=== PATIENT | female | born 1995 | race American Indian/Alaskan Native ===

== ENCOUNTER 2021-10-18 12:45 | Inpatient (IN) | payer OTHER ==
[2021-10-18] MEDS ORDERED: TERBUTALINE 1 MG/1 ML INJ SUB-Q PRN (13:28)
[2021-10-18] MEDS ORDERED: METHYLERGONOVINE MALEATE 0.2 MG/ML VIAL IM PRN (13:28)
[2021-10-18] MEDS ORDERED: fentaNYL 100 MCG/2 ML INJ IV PRN (13:28)
[2021-10-18] MEDS ORDERED: ePHEDrine SULFATE 50 MG/1 ML INJ IV PRN ×2 (13:28→15:32)
[2021-10-18] MEDS ORDERED: BUTORPHANOL 2 MG/1 ML INJ IV PRN (13:28)
[2021-10-18] MEDS ORDERED: LIDOCAINE (2%) 20 MG/1 ML VIAL 20 ML MDV INFILTRATI ONE (13:28)
[2021-10-18] MEDS ORDERED: OXYTOCIN 10 UNIT/1 ML INJ IM PRN (13:28)
[2021-10-18] MEDS ORDERED: LOPERAMIDE 2 MG CAP PO PRN (13:28)
[2021-10-18] MEDS ORDERED: miSOPROStol 200 MCG TAB PR PRN (13:28)
[2021-10-18] MEDS ORDERED: MINERAL OIL 30 ML ORAL LIQD PO PRN (13:28)
[2021-10-18] MEDS ORDERED: AMPICILLIN/NS 2 GM/100 ML 2 GM/100 ML BAG IV ONE (13:28)
[2021-10-18] MEDS ORDERED: ACETAMINOPHEN 325 MG TAB PO PRN (13:28)
[2021-10-18] MEDS ORDERED: CARBOPROST TROMETHAMINE 250 MCG/1 ML INJ IM PRN (13:28)
[2021-10-18] MEDS ORDERED: LACTATED RINGERS 1,000 ML IV SCH (13:30)
--- NOTE | 2021-10-18 13:33 | History and Physical Report ---
History of Present Illness Date of examination: 10/18/21 Chief complaint: I'm having contractions. History of present illness: 26 yo @ 41w 0d presents via self, accompanied by partner, Doroteo, with complaint of painful contractions. Endorses copious amount of blood tinged discharge beginning around 1100 yesterday, denies gush of fluid. Endorses movement but states it has been decreased since contractions started last night around 2300. States contractions had regular pattern beginning around 0900 today. Denies heavy vaginal bleeding/ clots, LOF, chest pain, SOB, headaches, vision changes and NVD. NPO since 2029 yesterday. @1330 SVE: 4-5/90/-2 with meconium stained fluid per mixing supervisor. Upon transfer to labor room, FHT Cat 2, notable for variable deceleration. Pt repositioned to L lateral, then R lateral--> FHT Cat 1. VSS. Desires epidural, IVF bolus being administered. EDC Confirmation: 10/11/2021 Past History: : 2 Term Births: 0 Premature Births: 0 Living Children: 0 Para: 0 Mult. Births: 0 Prev : 0 Aborta: 1 Elect. Ab: 1 Spont. Ab: 0 Ectopics: 0 # 1 Delivery type: EAB Past Medical History: Reviewed and updated today: Negative Past Medical History Past Surgical History: Reviewed and updated today: Negative Past Surgical History Family History Summary: First Degree Blood Relative - Has No Known Family History - Entered On: 02/16/2021 Social History: Patient is single Smoking History: Patient has never smoked. Risk Factors: Smoked Tobacco Use: Never smoker Counseled to Quit/Cut Down: yes HIV High Risk Behavior: no Seatbelt Use: 100 % No Dietary Counseling Reason: pn yes Alcohol Use: no Drug Use: no Past Medical History Surgery (Non-cut off worker): Negative Past Surgical History Abnormal PAP: negative VERITO Exposure: negative Infertility: negative Uterine Anomaly: negative Uterine Surgery (not C/S): negative Other Gynecologic Problems: negative Infection History: HIV Risk Eval: no Genetic History: Congenital Heart Defect: Mom: no Dad: no Sebastián Disease: Mom: no Dad: no Thalassemia Mom: no Dad: no Neural Tube Defect Mom: no Dad: no Down's Syndrome Mom: no Dad: no Loki-Sachs Mom: no Dad: no Sickle Cell Disease/Trait Mom: no Dad: no Hemophilia Mom: no Dad: no Muscular Dystrophy Mom: no Dad: no Cystic Fibrosis Mom: no Dad: no Farzaneh Chorea Mom: no Dad: no Mental Retardation Mom: no Dad: no Fragile X Mom: no Dad: no Other Genetic/Chromosomal Disorder Mom: no Dad: no Child w/other defect Mom: no Dad: no Environmental Exposures: Xray Exposure: no Medication, drug, or alcohol use since LMP: no Chemical/Other Exposure: no Exposure to Cat Liter: no Hx of Parvovirus (Fifth Disease): no Occupational Exposure to Children: none Current Allergies (reviewed today):No known allergies Past History Past Medical History: no pertinent history Past Surgical History: no surgical history Family/Genetic History: none Social history: single - Obstetrical History Expected Date of Delivery: 10/11/21 Actual Gestation: 41 Week(s) 0 Day(s) : 2 Para: 0 Hx # Term Pregnancies: 0 Number of Pregnancies: 0 Spontaneous Abortions: 0 Induced : 1 Medications and Allergies Allergies Allergy/AdvReac Type Severity Reaction Status Date / Time No Known Allergies Allergy Unverified 10/18/21 13:50 Active Meds: Active Medications Acetaminophen (Acetaminophen 325 Mg Tab) 650 mg PO Q4H PRN PRN Reason: Pain, Mild (1-3) Butorphanol Tartrate (Butorphanol 2 Mg/1 Ml Inj) 2 mg IV Q2H PRN PRN Reason: Pain, Moderate(4-6) LABOR PAIN Carboprost Tromethamine (Carboprost Tromethamine 250 Mcg/1 Ml Inj) 250 mcg IM ONCE PRN PRN Reason: Uterine Bleeding Ephedrine Sulfate (Ephedrine Sulfate 50 Mg/1 Ml Inj) 10 mg IV Q2M PRN PRN Reason: Hypotension Fentanyl (Fentanyl 100 Mcg/2 Ml Inj) 100 mcg IV Q2H PRN PRN Reason: Pain,Severe (7-10) LABOR PAIN Oxytocin/Sodium Chloride (Pitocin/Ns 30 Unit/500ml) 30 units in 500 mls @ 2 mls/hr IV TITR YULIYA; Protocol Lactated Ringer's (Lactated Ringers) 1,000 mls @ 125 mls/hr IV DIRECT YULIYA Oxytocin/Sodium Chloride (Pitocin/Ns 30 Unit/500ml) 30 units in 500 mls @ 40 mls/hr IV TITR YULIYA; Protocol Ampicillin Sodium (Ampicillin/Ns 2 Gm/100 Ml) 2 gm in 100 mls @ 100 mls/hr IV ONCE ONE; Protocol Stop: 10/18/21 14:27 Ampicillin Sodium (Ampicillin/Ns 1 Gm/50 Ml) 1 gm in 50 mls @ 100 mls/hr IV Q4H YULIYA; Protocol Lidocaine (Lidocaine (2%) 20 Mg/1 Ml Vial 20 Ml Mdv) 20 ml INFILTRATI ONCE ONE Stop: 10/18/21 13:29 Loperamide HCl (Loperamide 2 Mg Cap) 2 mg PO ONCE PRN PRN Reason: give with Hemabate Methylergonovine Maleate (Methylergonovine Maleate 0.2 Mg/Ml Vial) 0.2 mg IM ONCE PRN PRN Reason: Uterine Bleeding Mineral Oil (Mineral Oil 30 Ml Oral Liqd) 30 ml PO QHS PRN PRN Reason: Constipation Misoprostol (Misoprostol 200 Mcg Tab) 800 mcg IA ONCE PRN PRN Reason: Uterine Bleeding Oxytocin (Oxytocin 10 Unit/1 Ml Inj) 10 unit IM ONCE PRN PRN Reason: Uterine Bleeding Terbutaline Sulfate (Terbutaline 1 Mg/1 Ml Inj) 0.25 mg SUB-Q ONCE PRN PRN Reason: Hyperstimulation/Hypertonicity Review of Systems Cardiovascular: no chest pain, no shortness of breath, no dyspnea on exertion, no high blood pressure, no leg edema Respiratory: no shortness of breath Breasts: deferred Gastrointestinal: abdominal pain (contractrions) Genitourinary: leakage of fluid (meconium stained fluid noted on peripad) Rectal Exam: deferred - Physical Exam Breasts: Positive: deferred Cardiovascular: Regular rate, Normal S1, Normal S2 Lungs: Positive: Clear to auscultation, Normal air movement Abdomen: Positive: normal appearance (gravid, S=D; +FHTs) Genitourinary (Female): Positive: normal external genitalia, normal perenium Vulva: both: normal Vagina: Positive: normal moisture Uterus: Positive: other (gravid; S=D; +FHTs) Extremities: Positive: normal - Obstetrical FHR: category 2 (repositioned from supine to L lateral, then R lateral--> Cat 1) Uterine Contraction Monitor Mode: External Cervical Dilatation: 4 (per mixing supervisor @1330) Cervical Effacement Percentage: 90 station: -2 Uterine Contraction Pattern: Regular Uterine Tone Measurement Phase: Resting Uterine Contraction Intensity: Moderate Results Result Diagrams: 10/18/21 14:14 All other labs normal. Assessment and Plan A: 26yo @ 41 weeks 0 days Meconium stained fluid noted upon arrival to unit, copious amounts of blood tinged discharge since 1100 on 10/17/21 per pt SVE: /-2 upon admission GBS+ Cat 1 FHT VSS Obesity (BMI 39.3) P: Admit for delivery cEFM Monitor VS Ampicillin now for GBS prophylaxis Monitor for signs and symptoms of infection Desires epidural, administering IVF bolus now - Patient Problems (1) 41 weeks gestation of Current Visit: Yes Status: Acute (2) Thin meconium stained amniotic fluid Current Visit: Yes Status: Acute (3) Obesity (BMI 35.0-39.9 without comorbidity) Current Visit: Yes Status: Acute (4) Group B streptococcal infection during Current Visit: Yes Status: Acute
[2021-10-18] MEDS ORDERED: OXYTOCIN DRIP 30 UNITS/500 ML BAG IV SCH ×2 (14:00)
[2021-10-18 14:50] LABS: Hematocrit 34.6 % (30.3-42.9); Hemoglobin 11.5 gm/dl (10.1-14.3); Mean Corpuscular HGB Conc 33 % (30-34); Mean Corpuscular Volume 91 fl (79-97); Platelet Count 227 K/mm3 (140-440); Red Cell Distribution Width 13.8 % (13.2-15.2)
[2021-10-18] MEDS ORDERED: LACTATED RINGERS 250 ML IV SOLN IV ONE (15:32)
[2021-10-18] MEDS ORDERED: NALOXONE 2 MG/2 ML INJ IV PRN (15:32)
[2021-10-18] MEDS ORDERED: ONDANSETRON 4 MG/2 ML INJ IV PRN (15:32)
[2021-10-18] MEDS ORDERED: NalbUPHINE 10 MG/1 ML INJ IV PRN (15:32)
[2021-10-18] MEDS ORDERED: diphenhydrAMINE 50 MG/ML VIAL IV PRN (15:32)
--- NOTE | 2021-10-18 16:08 | Anesthesia Consultation ---
Anesthesia Consult and Med Hx Date of service: 10/18/21 - Airway Anesthetic Teeth Evaluation: Good ROM Head & Neck: Adequate Mental/Hyoid Distance: Adequate Mallampati Class: Class III Intubation Access Assessment: Probably Good - Pulmonary Exam CTA: Yes - Cardiac Exam Cardiac Exam: RRR - Pre-Operative Health Status ASA Pre-Surgery Classification: ASA2 Proposed Anesthetic Plan: Epidural - Pulmonary Hx Smoking: No Hx Asthma: No COPD: No Hx Pneumonia: No Hx Sleep Apnea: No - Cardiovascular System Hx Hypertension: No Hx Heart Attack/AMI: No Hx Angina: No - Central Nervous System Hx Seizures: No Hx Psychiatric Problems: No - Gastrointestinal Hx Gastroesophageal Reflux Disease: No - Endocrine Hx Renal Disease: No Hx End Stage Renal Disease: No Hx Liver Disease: No Hx Insulin Dependent Diabetes: No Hx Non-Insulin Dependent Diabetes: No Hx Hypothyroidism: No Hx Hyperthyroidism: No - Hematic Hx Anemia: No Hx Sickle Cell Disease: No
--- NOTE | 2021-10-18 16:09 | Progress Note ---
Labor Epidural - Labor Epidural Start Time: 15:45 Stop Time: 16:00 Performed by:: ELISHA BENNETT (Caro Mcgovern) Procedure: Patient is requesting epidural for labor and pain. H&P, labs were reviewed. Patient IDed, all questions and concerns were answered, and consent was signed. Timeout was performed at bedside. Patient in sitting position. Sterile prep and drape was performed. 3ml of 1% lidocaine skin wheal at L[3]- L [4]. 17- gauge Tuohy epidural needle was advanced to loss of resistance with air technique 8cm. Negative CSF negative blood. Epidural catheter advanced to [14] centimeters. [negative] Aspiration [negative] test dose. Sterile dressing applied. Patient tolerated procedure.
[2021-10-18] MEDS: fentaNYL-BUPIV 2 MCG/ML-0.125% 200 MCG/100 ML BAG EPIDURAL SCH (16:21)
--- NOTE | 2021-10-18 17:58 | Progress Note ---
Assessment and Plan A: 26yo @41w0d admitted for contractions & SROM with leakage of meconium stained fluid @1300 on 10/18 Cat 2 tracing, regular contractions q3-4 min Forebag ruptured - moderate amount of meconium stained fluid ISE placed Cervical change - SVE now: /-1 Hypotension (98/52) GBS+ P: cEFM IVF bolus given Repositioned to Captain Nugent on right side Administer second dose of ampicillin for GBS prophylaxis now Frequent position changes NPO except ice chips Expectant management at this time Anticipate - Patient Problems (1) 41 weeks gestation of Current Visit: Yes Status: Acute (2) Thin meconium stained amniotic fluid Current Visit: Yes Status: Acute (3) Obesity (BMI 35.0-39.9 without comorbidity) Current Visit: Yes Status: Acute (4) Group B streptococcal infection during Current Visit: Yes Status: Acute Subjective - Subjective Date of service: 10/18/21 (1740) Principal diagnosis: 41 wks active labor SROM mec Interval history: 26 yo @ 41w 0d presents via self, accompanied by partner, Doroteo, with complaint of painful contractions. Endorses copious amount of blood tinged discharge beginning around 1100 yesterday, denies gush of fluid. Endorses movement but states it has been decreased since contractions started last night around 2300. States contractions had regular pattern beginning around 0900 today. Denies heavy vaginal bleeding/ clots, LOF, chest pain, SOB, headaches, vision changes and NVD. NPO since 2029 yesterday. @1330 SVE: 4-/-2 with meconium stained fluid per boilermaker industrial boilers. Upon transfer to labor room, T Cat 2, notable for variable deceleration. Pt repositioned to L lateral, then R lateral--> FHT Cat 1. VSS. Desires epidural, IVF bolus being administered. EDC Confirmation: 10/11/2021 Past History: : 2 Term Births: 0 Premature Births: 0 Living Children: 0 Para: 0 Mult. Births: 0 Prev : 0 Aborta: 1 Elect. Ab: 1 Spont. Ab: 0 Ectopics: 0 # 1 Delivery type: EAB Past Medical History: Reviewed and updated today: Negative Past Medical History Past Surgical History: Reviewed and updated today: Negative Past Surgical History Family History Summary: First Degree Blood Relative - Has No Known Family History - Entered On: 02/16/2021 Social History: Patient is single Smoking History: Patient has never smoked. Risk Factors: Smoked Tobacco Use: Never smoker Counseled to Quit/Cut Down: yes HIV High Risk Behavior: no Seatbelt Use: 100 % No Dietary Counseling Reason: pn yes Alcohol Use: no Drug Use: no Past Medical History Surgery (Non-manager zone): Negative Past Surgical History Abnormal PAP: negative VERITO Exposure: negative Infertility: negative Uterine Anomaly: negative Uterine Surgery (not C/S): negative Other Gynecologic Problems: negative Infection History: HIV Risk Eval: no Genetic History: Congenital Heart Defect: Mom: no Dad: no Sebastián Disease: Mom: no Dad: no Thalassemia Mom: no Dad: no Neural Tube Defect Mom: no Dad: no Down's Syndrome Mom: no Dad: no Loki-Sachs Mom: no Dad: no Sickle Cell Disease/Trait Mom: no Dad: no Hemophilia Mom: no Dad: no Muscular Dystrophy Mom: no Dad: no Cystic Fibrosis Mom: no Dad: no Gilliam Chorea Mom: no Dad: no Mental Retardation Mom: no Dad: no Fragile X Mom: no Dad: no Other Genetic/Chromosomal Disorder Mom: no Dad: no Child w/other defect Mom: no Dad: no Environmental Exposures: Xray Exposure: no Medication, drug, or alcohol use since LMP: no Chemical/Other Exposure: no Exposure to Cat Liter: no Hx of Parvovirus (Fifth Disease): no Occupational Exposure to Children: none Current Allergies (reviewed today):No known allergies Patient reports: loss of fluid Objective - Vital Signs Vital Signs: Vital Signs - 12hr 10/18/21 10/18/21 10/18/21 13:45 14:53 14:58 Temperature 97.9 F Pulse Rate 87 84 Respiratory 20 Rate Blood Pressure O2 Sat by Pulse 100 100 Oximetry 10/18/21 10/18/21 10/18/21 14:59 15:03 15:08 Temperature Pulse Rate 76 78 81 Respiratory Rate Blood Pressure 128/67 O2 Sat by Pulse 100 98 Oximetry 10/18/21 10/18/21 10/18/21 15:10 15:13 15:18 Temperature 97.5 F L Pulse Rate 87 85 Respiratory Rate Blood Pressure O2 Sat by Pulse 100 100 Oximetry 04/10/18/21 10/18/21 15:23 15:28 15:29 Temperature Pulse Rate 93 H 87 85 Respiratory Rate Blood Pressure O2 Sat by Pulse 98 98 90 Oximetry 10/18/21 10/18/21 10/18/21 15:33 15:38 15:43 Temperature Pulse Rate 87 97 H 76 Respiratory Rate Blood Pressure 108/63 O2 Sat by Pulse 100 94 100 Oximetry 10/18/21 10/18/21 10/18/21 15:47 15:48 15:52 Temperature Pulse Rate 89 86 72 Respiratory Rate Blood Pressure 126/81 129/78 O2 Sat by Pulse 100 Oximetry 10/18/21 10/18/21 10/18/21 15:53 15:57 15:58 Temperature Pulse Rate 84 86 85 Respiratory Rate Blood Pressure 125/58 O2 Sat by Pulse 100 99 Oximetry 10/18/21 10/18/21 10/18/21 16:03 16:04 16:07 Temperature Pulse Rate 78 82 90 Respiratory Rate Blood Pressure 120/69 126/73 O2 Sat by Pulse 100 Oximetry 10/18/21 10/18/21 10/18/21 16:08 16:13 16:17 Temperature Pulse Rate 86 89 86 Respiratory Rate Blood Pressure 116/58 117/62 O2 Sat by Pulse 99 99 Oximetry 10/18/21 10/18/21 10/18/21 16:18 16:22 16:23 Temperature Pulse Rate 93 H 94 H 88 Respiratory Rate Blood Pressure 114/59 O2 Sat by Pulse 100 100 Oximetry 10/18/21 10/18/21 10/18/21 16:28 16:33 16:38 Temperature Pulse Rate 87 80 85 Respiratory Rate Blood Pressure 115/60 114/58 O2 Sat by Pulse 100 100 99 Oximetry 10/18/21 10/18/21 10/18/21 16:39 16:43 16:48 Temperature Pulse Rate 80 88 93 H Respiratory Rate Blood Pressure 115/58 O2 Sat by Pulse 100 95 Oximetry 10/18/21 10/18/21 10/18/21 16:53 16:58 17:03 Temperature Pulse Rate 80 76 83 Respiratory Rate Blood Pressure O2 Sat by Pulse 100 100 100 Oximetry 10/18/21 10/18/21 10/18/21 17:08 17:10 17:13 Temperature Pulse Rate 75 79 76 Respiratory Rate Blood Pressure 105/64 O2 Sat by Pulse 100 100 Oximetry 10/18/21 10/18/21 10/18/21 17:18 17:23 17:28 Temperature Pulse Rate 77 94 H 86 Respiratory Rate Blood Pressure O2 Sat by Pulse 100 100 100 Oximetry 10/18/21 10/18/21 10/18/21 17:33 17:38 17:40 Temperature Pulse Rate 78 89 82 Respiratory Rate Blood Pressure 111/55 O2 Sat by Pulse 100 100 57 L Oximetry 10/18/21 10/18/21 17:43 17:45 Temperature Pulse Rate 88 94 H Respiratory Rate Blood Pressure 98/52 O2 Sat by Pulse 100 Oximetry - Exam Narrative Exam: Upon entering room, pt lying supine with right hip tilt. Epidural infusing, pt denies pain, unable to move legs. Augustin draining clear yellow urine. Variable deceleration noted. Hypotension noted; IVF bolus given by primary RN. Pt repositioned to Captain [place] on the right side. Return to FHT baseline in the 125s. SVE: 7/90/-1, forebag ruptured for moderate amount of meconium stained fluid, towels and peripad changed. ISE placed with pt consent. Pt repositioned to Captain [place] right side. Questions answered regarding POC. Breasts: deferred Cardiovascular: Regular rate Lungs: Normal air movement Abdomen: Present: normal appearance Vulva: both: normal Uterus: Present: normal FHR: category 2, other (ISE placed) Uterine Contraction Monitor Mode: External Cervical Dilatation: 7 Cervical Effacement Percentage: 90 station: -1 Uterine Contraction Frequency (min): q4-5 min Uterine Contraction Pattern: Regular Uterine Tone Measurement Phase: Resting Uterine Contraction Intensity: Moderate Extremities: normal - Labs Labs: Abnormal Labs 10/18/21 14:14 WBC 14.0 H Laboratory Results - last 24 hr 10/18/21 10/18/21 10/18/21 14:14 14:14 14:14 WBC 14.0 H RBC 3.80 Hgb 11.5 Hct 34.6 MCV 91 MCH 30 MCHC 33 RDW 13.8 Plt Count 227 Syphilis IgG/IgM Ab Nonreactive Blood Type A POSITIVE Antibody Screen Negative
[2021-10-18] MEDS: AMPICILLIN/NS 1 GM/50 ML 1 GM/50 ML BAG IV SCH ×2 (18:25→22:53)
--- NOTE | 2021-10-18 21:02 | Event Note ---
Date: 10/18/21 (2049) This senior writer to bedside for variable deceleration x2, with return to FHTs to baseline in the 120s with moderate variability <45 seconds. VSS. SVE: 7/100/0. Bloody show and light meconium stained fluid on peripad, draw sheet, peripad and towel changed. Augustin draining red tinged clear urine. VSS. Pt repositioned from Capttiffanie Nugent's L lateral lying to high Fowlers with knees together. Augmentation of labor with pitocin discussed with pt and partner, Doroteo; amenable to POC. Primary RN at bedside throughout assessment.
[2021-10-19] MEDS: fentaNYL-BUPIV 2 MCG/ML-0.125% 200 MCG/100 ML BAG EPIDURAL SCH (00:28)
--- NOTE | 2021-10-19 03:02 | Procedure Note ---
OB Delivery Note - Delivery Date of Delivery: 10/19/21 Photocopying Machine Operator: SUSHIL CARABALLO (Becky Noel [facility]) Estimated blood loss: other (175mL) - Vaginal Delivery position: OA Intrapartum events: meconium, mult. late decelerations, mult.variable deceleratio Delivery augmentation: pitocin Delivery monitor: external FHT, external uterine, internal FHT Route of delivery: Delivery placenta: spontaneous Delivery cord: 3 umbilical vessels Episiotomy: none Delivery laceration: 1st degree (hemostatic, not repaired) Anesthesia: epidural Delivery comments: @2300 - SVE: ant lip/c/+1. Pushing x2.5 hours in various pushing including lithotomy, side lying right and left lateral, and tug of war utilized. Slow x10+ rounds of pushing with contractions due to maternal difficulty with pushing. Baby girl Genesis born with reduced tone and respiratory effort, cord doubly clamped and cut <30 sec of life and brought to [facility] by awaiting Pediatric team. pitocin initiated. Delivery of intact Velazquez placenta, 3vc. Fundus firm, midline, @U/U, moderate bleeding following uterine expression. 1st degree laceration hemostatic, not repaired. QBL: 175mL. 800mcg cyotec administered MT. Counts performed x2 and correct x2 with primary RN. APGARS 7/9, 7 lbs 7 oz. Infant fever 103F noted at delivery time. Maternal temp: 99.1F. Infant and mom left in stable condition with primary RN @3448. - Infant A at 1 minute: 7 at 5 minutes: 9 Gender: Female (Genesis; 7 lbs 7 oz)
[2021-10-19] MEDS ORDERED: BENZOCAINE/MENTHOL 20/0.5% TOP SPRAY 56 GM TP PRN (04:25)
[2021-10-19] MEDS ORDERED: MAGNESIUM HYDROXIDE (MOM) ORAL LIQD UDC PO PRN (04:25)
[2021-10-19] MEDS ORDERED: ONDANSETRON 4 MG/2 ML INJ IV PRN (04:25)
[2021-10-19] MEDS ORDERED: ACETAMINOPHEN 325 MG TAB PO PRN (04:25)
[2021-10-19] MEDS ORDERED: KETOROLAC 30 MG/1 ML INJ IV PRN (04:25)
[2021-10-19] MEDS ORDERED: diphenhydrAMINE 25 MG CAP PO PRN (04:25)
[2021-10-19] MEDS ORDERED: LANOLIN/ZINC/DIMETHICONE (LANSINOH) 7 GM TP PRN (04:25)
[2021-10-19] MEDS ORDERED: PROMETHAZINE 25 MG TAB PO PRN (04:25)
[2021-10-19] MEDS ORDERED: WITCH HAZEL/ GLYCERIN PAD TP PRN (04:25)
[2021-10-19] MEDS ORDERED: LACTATED RINGERS 1,000 ML ONE (04:47)
[2021-10-19] MEDS: IBUPROFEN 800 MG TAB PO SCH ×3 (06:08→18:31)
--- NOTE | 2021-10-19 09:35 | Progress Note ---
Assessment and Plan Pt reports eating, ambulating and voiding without difficulty. VSSAF, post delivery H&H to be drawn this afternoon. POC with precautions d/w pt. Pt verbalizes understanding. No questions or concerns verbalized. Continue pathway. - Patient Problems (1) (normal spontaneous vaginal delivery) Current Visit: Yes Status: Acute Subjective - Subjective Date of service: 10/19/21 Principal diagnosis: Patient reports: appetite normal, voiding normally, pain well controlled, ambulating normally : doing well Objective - Vital Signs Latest vital signs: Vital Signs Temp Pulse Resp BP BP Pulse Ox Pulse Ox 10/19/21 07:32 99.3 F 92 H 20 111/61 98 10/19/21 05:30 99 10/19/21 05:27 100.5 F H 93 H 20 118/59 98 10/19/21 05:03 97 H 120/58 10/19/21 04:44 96 H 98 10/19/21 04:39 89 99 10/19/21 04:34 87 97 10/19/21 04:29 82 97 10/19/21 04:24 87 97 10/19/21 04:19 88 98 10/19/21 04:14 87 96 10/19/21 04:09 89 97 10/19/21 04:04 85 97 10/19/21 03:33 93 H 98 10/19/21 03:28 87 99 10/19/21 03:23 91 H 99 10/19/21 03:18 89 97 10/19/21 03:13 97 H 99 10/19/21 03:08 89 99 10/19/21 03:03 91 H 100 10/19/21 02:58 90 100 10/19/21 02:53 95 H 100 10/19/21 02:48 102 H 100 10/19/21 02:43 95 H 100 10/19/21 02:38 96 H 100 10/19/21 02:33 92 H 100 10/19/21 02:28 98 H 99 10/19/21 02:23 96 H 97 10/19/21 02:20 99 H 121/65 10/19/21 02:18 94 H 97 10/19/21 02:13 93 H 97 10/19/21 02:12 99.9 F H 10/19/21 02:08 122 H 97 10/19/21 02:03 114 H 98 10/19/21 01:58 96 H 98 10/19/21 01:53 97 H 97 10/19/21 01:48 110 H 100 10/19/21 01:43 97 H 99 10/19/21 01:38 107 H 99 10/19/21 01:33 109 H 100 10/19/21 01:28 101 H 99 10/19/21 01:27 89 88 10/19/21 01:23 103 H 99 10/19/21 01:22 74 81 L 10/19/21 01:18 104 H 97 10/19/21 01:13 98 H 99 10/19/21 01:08 109 H 99 10/19/21 01:03 103 H 100 10/19/21 00:58 95 H 100 10/19/21 00:53 98 H 100 10/19/21 00:52 115 H 91 10/19/21 00:48 94 H 99 10/19/21 00:43 112 H 97 10/19/21 00:39 111 H 124/59 76 L 10/19/21 00:38 97 H 100 10/19/21 00:33 100 H 100 10/19/21 00:32 83 74 L 10/19/21 00:28 97 H 100 10/19/21 00:27 51 L 82 L 10/19/21 00:23 99 H 100 10/19/21 00:18 96 H 100 10/19/21 00:13 114 H 97 10/19/21 00:10 108 H 121/67 10/19/21 00:08 105 H 98 10/19/21 00:06 120 H 93 10/19/21 00:03 103 H 98 10/18/21 23:59 102 H 94 10/18/21 23:58 110 H 100 10/18/21 23:53 113 H 100 10/18/21 23:48 96 H 100 10/18/21 23:43 106 H 99 10/18/21 23:42 110 H 114/63 10/18/21 23:38 101 H 100 10/18/21 23:35 98 H 89 10/18/21 23:33 115 H 100 10/18/21 23:28 114 H 100 10/18/21 23:24 129 H 66 L 10/18/21 23:23 113 H 100 10/18/21 23:18 95 H 100 10/18/21 23:13 115 H 100 10/18/21 23:10 88 116/61 10/18/21 23:08 107 H 99 10/18/21 23:03 101 H 100 10/18/21 22:58 93 H 100 10/18/21 22:53 96 H 100 10/18/21 22:50 98.4 F 10/18/21 22:48 97 H 100 10/18/21 22:44 102 H 94 10/18/21 22:43 92 H 100 10/18/21 22:40 101 H 127/63 10/18/21 22:38 90 100 10/18/21 22:33 87 100 10/18/21 22:28 85 99 10/18/21 22:23 92 H 98 10/18/21 22:18 97 H 100 10/18/21 22:13 106 H 97 10/18/21 22:12 90 116/84 10/18/21 22:10 82 87 10/18/21 22:08 102 H 100 10/18/21 22:03 100 H 100 10/18/21 21:58 93 H 100 10/18/21 21:53 82 100 10/18/21 21:48 80 100 10/18/21 21:43 83 100 10/18/21 21:40 114 H 139/89 10/18/21 21:38 99 H 100 10/18/21 21:33 86 100 10/18/21 21:28 79 100 10/18/21 21:23 94 H 100 10/18/21 21:18 79 100 10/18/21 21:13 78 100 10/18/21 21:10 91 H 119/66 91 10/18/21 21:08 82 100 10/18/21 21:03 81 100 10/18/21 20:58 77 100 10/18/21 20:53 81 100 10/18/21 20:48 89 99 10/18/21 20:43 82 100 10/18/21 20:41 86 121/72 10/18/21 20:38 86 99 10/18/21 20:33 87 100 10/18/21 20:28 74 100 10/18/21 20:23 75 100 10/18/21 20:18 76 100 10/18/21 20:13 75 100 10/18/21 20:10 78 122/66 10/18/21 20:08 88 100 10/18/21 20:03 78 100 10/18/21 19:58 75 100 10/18/21 19:53 78 100 10/18/21 19:48 85 100 10/18/21 19:43 76 100 10/18/21 19:40 72 108/59 10/18/21 19:38 71 99 10/18/21 19:33 78 100 10/18/21 19:28 79 100 10/18/21 19:26 97 H 84 10/18/21 19:23 72 100 10/18/21 19:18 77 100 10/18/21 19:13 79 100 10/18/21 19:11 80 102/54 10/18/21 19:08 73 100 10/18/21 19:07 100 10/18/21 19:04 79 17 112/56 100 10/18/21 19:03 78 100 10/18/21 18:58 81 100 10/18/21 18:54 94 H 88 10/18/21 18:53 89 99 10/18/21 18:48 82 100 10/18/21 18:43 85 100 10/18/21 18:39 85 112/56 10/18/21 18:38 82 100 10/18/21 18:33 82 100 10/18/21 18:28 87 100 10/18/21 18:25 83 122/64 10/18/21 18:23 85 100 10/18/21 18:18 85 100 10/18/21 18:13 83 100 10/18/21 18:09 86 95/53 10/18/21 18:08 91 H 101/51 100 10/18/21 18:03 73 100 10/18/21 17:58 101 H 100 10/18/21 17:53 81 100 10/18/21 17:48 97.7 F 89 100 10/18/21 17:45 94 H 98/52 10/18/21 17:43 88 100 10/18/21 17:40 82 111/55 57 L 10/18/21 17:38 89 100 10/18/21 17:33 78 100 10/18/21 17:28 86 100 10/18/21 17:23 94 H 100 10/18/21 17:18 77 100 10/18/21 17:13 76 100 10/18/21 17:10 79 105/64 10/18/21 17:08 75 100 10/18/21 17:03 83 100 10/18/21 16:58 76 100 10/18/21 16:53 80 100 10/18/21 16:48 93 H 95 10/18/21 16:43 88 100 10/18/21 16:39 80 115/58 10/18/21 16:38 85 99 10/18/21 16:33 80 114/58 100 10/18/21 16:28 87 115/60 100 10/18/21 16:23 88 100 10/18/21 16:22 94 H 114/59 10/18/21 16:18 93 H 100 10/18/21 16:17 86 117/62 10/18/21 16:13 89 116/58 99 10/18/21 16:08 86 99 10/18/21 16:07 90 126/73 10/18/21 16:04 82 120/69 10/18/21 16:03 78 100 10/18/21 15:58 85 99 10/18/21 15:57 86 125/58 10/18/21 15:53 84 100 10/18/21 15:52 72 129/78 10/18/21 15:48 86 100 10/18/21 15:47 89 126/81 10/18/21 15:43 76 108/63 100 10/18/21 15:42 20 10/18/21 15:38 97 H 94 10/18/21 15:33 87 100 10/18/21 15:29 85 90 10/18/21 15:28 87 98 10/18/21 15:23 93 H 98 10/18/21 15:18 85 100 10/18/21 15:13 87 100 10/18/21 15:10 97.5 F L 10/18/21 15:08 81 98 10/18/21 15:03 78 100 10/18/21 14:59 76 128/67 10/18/21 14:58 84 100 10/18/21 14:53 87 100 10/18/21 13:45 97.9 F 20 Intake and Output 10/18/21 10/19/21 10/19/21 23:59 07:59 15:59 Intake Total 50 200 Output Total 700 450 Balance -650 -250 Intake: IV 50 AMPICILLIN/NS 1 GM/50 ML 50 1 gm In 50 ml @ 100 mls/ hr IV Q4H [facility] Rx#: [id number] Oral 200 Output: Urine 700 450 Indwelling Catheter 700 Self-Catheterization 150 Void 300 Other: Total, Intake Amount 200 Total, Output Amount 700 300 Estimated Blood Loss 175 - Exam Breasts: Present: normal Lungs: Present: Normal air movement Abdomen: Present: normal appearance, soft. Absent: distention Vulva: both: normal, laceration/episiotomy Uterus: Present: normal, firm Extremities: Present: normal - Labs Labs: Abnormal lab results 10/18/21 Range/Units 14:14 WBC 14.0 H (4.5-11.0) K/mm3
--- NOTE | 2021-10-19 09:44 | Post Anesthesia Evaluation ---
- Post Anesthesia Evaluation Patient Participated: Yes Airway Patent: Yes Stable Respiratory Function: Yes Nausea/Vomiting: No Temp > 96.8F: Yes Pain Manageable: Yes Adequeate Hydration: Yes Anesthesia Complications: No Block Receding Appropriately: Yes Patient on Ventilator: No
[2021-10-19] MEDS: DOCUSATE SODIUM 100 MG CAP PO SCH (11:54)
[2021-10-19] MEDS: PRENATAL VIT27-FE FUMARATE-FOLIC ACID VIT TAB PO SCH (11:54)
--- NOTE | 2021-10-19 12:24 | Event Note ---
Date: 10/19/21 phone call received from nurse reporting irregular heartbeat auscultated on exam; reports pt asymptomatic and without known history. Orders placed for EKG. Will continue to observe. Dr. Humphrey aware
[2021-10-19 18:11] LABS: Hematocrit 29.4 % (30.3-42.9); Hemoglobin 9.8 gm/dl (10.1-14.3)
[2021-10-20] MEDS: DOCUSATE SODIUM 100 MG CAP PO SCH ×2 (00:06→10:31)
[2021-10-20] MEDS: IBUPROFEN 800 MG TAB PO SCH ×3 (00:06→18:00)
[2021-10-20] MEDS ORDERED: TETANUS,DIPH,PERTUSS(ACELL) VACCINE 0.5 ML SYRINGE IM ONE (02:57)
[2021-10-20 09:49] VITALS: BP 102/68
[2021-10-20] MEDS: PRENATAL VIT27-FE FUMARATE-FOLIC ACID VIT TAB PO SCH (10:31)
--- NOTE | 2021-10-20 13:14 | Discharge Summary ---
Providers - Providers Date of Admission: 10/18/21 13:28 Date of discharge: 10/20/21 (pt desires discharge home) Attending physician: JOSE RANDHAWA MD 10/19/21 04:25 Consult to Process Engineering Intern [CONS] Routine Reason For Exam: assistance with , SNS Primary care physician: JOSE RANDHAWA MD Hospitalization Reason for admission: active labor, IUP at term Delivery: Episiotomy: none Laceration: 1st degree Other procedures: none complications: none Discharge diagnosis: IUP at term delivered [place] baby: female Condition at discharge: Good Disposition: HOME / SELF CARE / HOMELESS - Discharge Diagnoses (1) (normal spontaneous vaginal delivery) Status: Acute Comment: Pt denies all complaints and reports desires for discharge home. Fundus firm with scant lochia. Breasts normal and filling. Extremities normal and without edema. Discharge precautions reviewed. Control options discussed. Pt desires nexplanon placement @6wks . All questions addressed. Pt verbalizes understanding. Plan - Provider Discharge Summary Activity: routine, no sex for 6 weeks, no heavy lifting 4 weeks, no strenuous exercise Diet: routine Instructions: routine Additional instructions: [] Smoking cessation referral if applicable(refer to patient education folder for contact #) [] Refer to [facility]'s [facility] Booklet Call your doctor immediately for: * Fever > 100.5 * Heavy vaginal bleeding ( >1 pad per hour) * Severe persistent headache * Shortness of breath * Reddened, hot, painful area to leg or breast * * Congratulations! Please call [phone] and schedule your visit in 4 weeks. Thank you! - Follow up plan Follow up: JOSE RANDHAWA MD [Primary Care Provider] - 7 Days
--- NOTE | 2021-10-22 14:04 | Electrocardiograph Report ---
[facility] Test Date: 2021-10-19 Test Time: 16:47:25 Pat Name: JANETTE TOBAR Department: Room: 2132 1 Gender: F Director [facility]: [place] : 1995 Requested By: GINA HENDRIX Order Number: [id number] Reading MD: Daniel Bravo Measurements Intervals Wilber Rate: 77 P: 29 SC: 149 QRS: 8 QRSD: 90 T: 21 QT: 359 QTc: 407 Interpretive Statements Sinus rhythm Low voltage, precordial leads No previous ECG available for comparison Electronically Signed On 10-22-2021 14:04:26 EDT by Daniel Bravo
== END 2021-10-20 18:01 | disposition home or self-care (01) | DRG 775 ==
LOC: TRG 12:45 → APU 12:47 → TRG 13:53 → LD 14:43 → OB 10-19 06:04
PROVIDERS: ADMIT Student in an Organized Health Care Education/Training Program; ATTEND Student in an Organized Health Care Education/Training Program
PROC: 10E0XZZ Delivery of Products of Conception, External Approach (ICD-10-PCS; principal; 2021-10-19)
PROC: 3E0R3BZ Introduction of Anesthetic Agent into Spinal Canal, Percutaneous Approach (ICD-10-PCS; 2021-10-19)
PROC: 00HU33Z Insertion of Infusion Device into Spinal Canal, Percutaneous Approach (ICD-10-PCS; 2021-10-19)
PROC: 3E0234Z Introduction of Serum, Toxoid and Vaccine into Muscle, Percutaneous Approach (ICD-10-PCS; 2021-10-20)
DX: O76 Abnormality in fetal heart rate and rhythm complicating labor and delivery (principal); O77.0 Labor and delivery complicated by meconium in amniotic fluid; Z3A.41 41 weeks gestation of pregnancy; Z37.0 Single live birth; Z20.822 Contact with and (suspected) exposure to COVID-19; Z23 Encounter for immunization; O99.824 Streptococcus B carrier state complicating childbirth; O99.214 Obesity complicating childbirth; O26.53 Maternal hypotension syndrome, third trimester; O70.0 First degree perineal laceration during delivery
CPT/HCPCS: 36415; 85014; 85018; 85027; 86592; 86850; 86900; 86901; 93005; G0378; J3490; J0290; J2590; J7120; U0003